=== PATIENT | male | born 1970 | race Caucasian/White ===

== ENCOUNTER 2019-12-21 19:18 | Emergency (ER) | payer OTHER, BC ==
[~2019-12-21] VITALS: Ht 180 cm; Wt 105.0 kg
[2019-12-21] MEDS ORDERED: OMEP20TA7 PO (19:28)
[2019-12-21] MEDS ORDERED: ASPI-586 PO (19:28)
--- OUTSIDE RECORDS SUMMARY | 2019-12-21 19:30 | XMS REPORT | Referral Summary ---
Author Author [facility] Toni comer, Cardiology Organization [facility], Toni comer, Cardiology Address Unknown Phone Unavailable Care Team Providers Care Supervisor Rod Placing Name Role Phone Terry Baugh Ludivina PCP Encounter VC Date(s): 08/03/16 - 08/03/16 [facility], Cardiology [address] [place], [place] [address] Discharge Disposition: 01-Home or Self Care Attending Physician: Hong Garduno MD Admitting Physician: Hong Garduno MD Vital Signs Most recent to 1 oldest [Reference Range]: Peripheral Pulse 59 bpm Rate [60-100 bpm] *LOW* (08/03/16 1:12 PM) Blood Pressure 129/96 mmHg [90-140/60-90 mmHg] (08/03/16 1:12 PM) Problem List Condition Effective Dates Status Health Status Informan t Esophageal Active reflux(Confirmed) Obesity(Confirmed) Active patient Pure Active hypercholesterolemia (Confirmed) Allergies, Adverse Reactions, Alerts No Known Medication Allergies Medications aspirin 81 mg oral delayed release tablet 1 tabs, Oral, Daily Start Date: 04/24/14 Status: Ordered atorvastatin 40 mg oral tablet See Instructions, TAKE ONE AND ONE-HALF TABLET BY MOUTH AT BEDTIME, # 45 tabs, e Rx: [facility] #[id number], TAKE ONE AND ONE-HALF TABLET BY MOUTH AT BEDTIME Start Date: 06/12/16 Status: Ordered atorvastatin 40 mg oral tablet See Instructions, TAKE ONE AND ONE-HALF (1 & 1/2) TABLET BY MOUTH AT BEDTIME, # 45 tabs, 0 Refill(s), Pharmacy: [facility] #[id number], TAKE ONE AND ONE-HALF (1 & 1/2) TABLET BY MOUTH AT BEDTIME Start Date: 05/12/16 Status: Ordered Crestor 40 mg oral tablet 40 mg 1 tabs, Oral, Daily, # 90 tabs, 6 Refill(s), Pharmacy: [facility] #[id number], 1 tabs Oral Daily Start Date: 06/07/16 Status: Ordered losartan 25 mg oral tablet 25 mg 1 tabs, Oral, Daily, # 90 tabs, 6 Refill(s), Pharmacy: [facility] #[id number], 1 tabs Oral Daily Start Date: 06/07/16 Status: Ordered omeprazole 20 mg oral delayed release capsule 1 caps, Oral, Daily Start Date: 04/24/14 Status: Ordered Results No data available for this section Immunizations No data available for this section Procedures Procedure Date Related Diagnosis Body Site Tonsillectomy Social History Social History Type Response Smoking Status Never smoker Assessment and Plan No data available for this section
--- OUTSIDE RECORDS SUMMARY | 2019-12-21 19:30 | XMS REPORT | Continuity of Care Document ---
Author Author [facility] Organization [facility] Address [address] [place] [address] Phone Care Team Providers Care Differential Tester Name Role Phone Gildardoleslye Ivan Darby Attphys GildardoIvan gavin Mehnaz Rndphys Allergies, Adverse Reactions, Alerts No known allergies. Medications Medication Status Dose Units Route Sig Qty Days Start Date End Date Instructions Aspirin (Adult Low Strength Aspirin) Discontinued TABLET, DELAYED RELE ASE Daily 0 June 27, 2010 9:19am June 05, 2019 4:29pm Omeprazole Active Daily 0 June 27, 2010 9:19am STATIN MED Discontinued Daily 0 June 27, 2010 9:19am June 05, 2019 4:29pm VITAMIN Discontinued Daily 0 June 27, 2010 9:19am June 052018 4:29pm Oseltamivir Cap Discontinued 75 MG Oral Twice a Day 10 5 August 09, 2017 5:43pm August 14, 2017 12:02am Oseltamivir Cap Discontinued 75 MG Oral Daily 7 7 August 08, 2018 6:20pm August 15, 2018 12:02am Losartan Potassium Active 25 MG Oral Daily June 06, 2019 9:08am Rosuvastatin Calcium Active 40 MG Oral Daily June 06, 2019 9:08am Rosuvastatin Calcium Discontinued 40 MG Oral Daily June 05, 2019 4:30pm June 06, 2019 9:08am Losartan Potassium Discontinued 25 MG Oral Daily June 05, 2019 4:30pm June 06, 2019 9:08am Multivitamin Active 1 CAP Oral Daily June 05, 2019 4:31pm Problems No problem information available. Procedures No procedure information available. Relevant Diagnostic Tests and/or Laboratory Data Laboratory Results Test Date/Time Result Interpretation Reference Range Result Comment Performing Site Icterus Index June 05, 2019 5:48pm < 2.0 0-7 Main Lab, [address] [place] [address] Chemistry Specimen Hemolysis Decembe r 2018 5:48pm < 15.0 0-25 0-25: Specimen Exhibited No Hemolysis. Main Lab, [address] [place] [address] Turbidity June 05, 2019 5:48pm < 20.0 0-20 Main Lab, [address] [place] [address] Sodium Level June 05, 2019 5:48pm 140 meq/L 136-146 Main Lab, [address] [place] [address] Potassium Level June 05, 2019 5:48pm 4.2 meq/L 3.6-5 Main Lab, [address] [place] [address] Chloride Level June 05, 2019 5:48pm 105 meq/L 98-107 Main Lab, [address] [place] [address] Carbon Dioxide Level June 05, 2019 5:48pm 24 MEQ/L 22-30 Main Lab, [address] [place] [address] Anion Gap June 05, 2019 5:48pm 11 meq/L 5-15 Main Lab, [address] [place] [address] Blood Urea Nitrogen June 05 019 5:48pm 19.0 MG/DL 9-20 Main Lab, [address] [place] [address] Creatinine June 05, 2019 5:48pm 1.0 mg/dL 0.8-1.5 Main Lab, [address] [place] [address] 35368 Glomerular Filtration Rate Calc Dece mber 2018 5:48pm 79 mL/min >60 Main Lab, [address] [place] [address] Estimated Creatinine Clearance Decem lorraine 2018 5:48pm 107 mL/min Main Lab, [address] [place] [address]2854 BUN/Creatinine Ratio June 05, 2019 5:48pm 19 RATIO 6-26 Main Lab, [address] [place], [place] [id number] Glucose Level June 05, 2019 5:48pm 86 MG/DL 75-110 Main Lab, [address] [place] [address]08 Calculated Osmolality June 05, 2019 5:48pm 270 MOSM/KG 261-280 Main Lab, [address] [place] [address] Calcium Level June 05, 2019 5:48pm 9.8 MG/DL 8.4-10.2 Main Lab, [address] [place] [address]408 Total Bilirubin June 05, 2019 5:48pm 0.30 MG/DL 0.20-1.30 Main Lab, [address] [place] [address] Alkaline Phosphatase June 05, 2019 5:48pm 36 U/L 38-126 Main Lab, [address] [place] [address] Aspartate Amino Transf (AST/SGOT) De cember 2018 5:48pm 30 U/L 17-59 Main Lab, [address] [place] [address] Alanine Aminotransferase (ALT/SGPT) June 05, 2019 5:48pm 23 U/L 1-50 Main Lab, [address] [place] [address] Total Protein June 05, 2019 5:48pm 7.6 g/dL 6.3-8.2 Main Lab, [address] [place] [address] Albumin June 05, 2019 5:48pm 4.6 g/dL 3.5-5.0 Main Lab, [address] [place] [address] Globulin June 05, 2019 5:48pm 3.0 G/DL 2.4-3.6 Main Lab, [address] [place] [address] Albumin/Globulin Ratio May 5:48pm 1.5 RATIO 1.1-2.2 [facility], [address] [place] [address] Chemistry Comments June 05 5:48pm Performed at [facility] lab Test performed at: [facility], [address] [place] [address]. C++ Quant Developer Evelyn Patel MD. [facility]# [id number]. Main Lab, [address] [place] [address] Health Concerns Health Concerns may be documented in an alternate section. Chief Complaint and Reason for Visit Chief Complaint med check Encounters Encounter Location(s) [facility]/Admit Date Discharge/Depart Date Provider(s) Departed Physician/Provider Office Visit [facility] June 05, 2019 4:18pm June 05, 2019 5:24pm Mehnaz Granados APRN Assessments No Assessments Information Available Family History Relationship Condition A ge at Onset Recorded Date/Time father Unknown Unknown grandmother Unknown mother Unknown Functional Status No Functional Status information available Goals Goals may be documented in an alternate section. Immunizations No Immunization Information Available Mental Status No Mental Status Information Available Medical Equipment No Medical Equipment Information available Insurance Providers Guarantor Dino Fishman Address [address] [facility] [address] Contact Info. Home Phone: Payer Policy Id Coverage Id Subscriber's Name Subscriber Id Effective Date Expiration Date [facility] [id number] 2010 Self Pay Self N/A Plan of Treatment Plan to draw CMP today, patient has not had lab work for several years besides his lipids. We will notify him of results. Plan to follow-up yearly for wellness exams. Offered fl u shot, patient declined. Future Tests Future scheduled test information is unavailable Pending Tests Pending diagnostic test information is unavailable Future Visits Future appointment information is unavailable Referrals to Other Providers Referral information is unavailable Future Procedures Future procedure information is unavailable Future Medications Future medication information is unavailable Patient Instructions Patient instructions are unavailable Social History Smoking Status Status Date of Observation Unknown if ever smoked May 8:46am Observation Status Observation Response Jose De Jesus e of Response alcohol intake current D ec2018 8:46am alcohol intake frequency a few times a wee k June 06, 2019 8:46am substance use type does not use June 06, 2019 8:46am Assigned Sex Male Vital Signs Vital Reading Result Ref erence Range Collection Date/Time Height 69.5 [in_i] June 05, 2019 4:34pm Weight 104.77 kg June 05, 2019 4:34pm Body Temperature 98.9 [degF] 96.8-100.4 June 05, 2019 4:34pm Heart Rate 80 /min 60-100 June 05, 2019 4:34pm Oxygen saturation by Pulse oximetry 92 % 90- 100 June 05, 2019 4:34pm BP Systolic 134 mm[Hg] - 139 June 05, 2019 4:34pm BP Diastolic 82 mm[Hg] - 89 June 05, 2019 4:34pm BMI (Body Mass Index) 33.6 kg/m2 June 05, 2019 4:34pm
--- OUTSIDE RECORDS SUMMARY | 2019-12-21 19:30 | XMS REPORT | Referral Summary ---
Author Author [facility], Toni comer, Cardiology Organization [facility] Toni comer, Cardiology Address Unknown Phone Unavailable Care Team Providers Care Dredge Master Name Role Phone Finn Payne PCP Encounter Date(s): 11/19/14 - 11/19/14 [facility], [place], Cardiology [address] [place], [place] [address] Discharge Diagnosis: Essential hypernatremia Discharge Diagnosis: High cholesterol Discharge Diagnosis: Essential hypertension Discharge Disposition: 01-Home or Self Care Attending Physician: Hong Garduno MD Admitting Physician: Hong Garduno MD Vital Signs Most recent to 1 oldest [Reference Range]: Peripheral Pulse 60 bpm Rate [60-100 bpm] (11/19/14 1:57 PM) Blood Pressure 132/102 mmHg [90-140/60-90 mmHg] (11/19/14 1:57 PM) Problem List Condition Effective Dates Status Health Status Informan t Esophageal Active reflux(Confirmed) Obesity(Confirmed) Active patient Pure Active hypercholesterolemia (Confirmed) Allergies, Adverse Reactions, Alerts No Known Medication Allergies Medications aspirin 81 mg oral delayed release tablet 1 tabs, Oral, Daily Start Date: 04/24/14 Status: Ordered Lipitor 40 mg oral tablet 60 mg 1.5 tabs, Oral, Bedtime (once a day), # 135 tabs, 2 Refill(s), Pharmacy: [facility] #[id number], 1.5 tabs Oral Bedtime (once a day) Start Date: 04/06/15 Status: Ordered losartan 25 mg oral tablet 25 mg 1 tabs, Oral, Daily, # 90 tabs, 2 Refill(s), Pharmacy: [facility] #[id number], 1 tabs Oral Daily Start Date: 04/06/15 Status: Ordered omeprazole 20 mg oral delayed release capsule 1 caps, Oral, Daily Start Date: 04/24/14 Status: Ordered Results No data available for this section Immunizations No data available for this section Procedures Procedure Date Related Diagnosis Body Site Tonsillectomy Social History Social History Type Response Smoking Status Never smoker Assessment and Plan Extracted from: Title: Office Visit Note Author: Hong Garduno MD Date: 11/19/14 Assessment/Plan 1.Essential hypernatremia Ordered: Return to Clinic 2.Essential hypertension Ordered: Return to Clinic 3.High cholesterol Discussion: Overall, he seems to be doing okay but I think that there are some opportunities. We advised him that his blood pressure is indeed higher than it should be and we initiated therapy with losartan, 25 mg daily. We gave him suggestions regarding his activity program and diet. We suggested that he try to lose approximately 5 percent of his body weight by next year. We discussed his lipid situation. He is taking 60 mg of atorvastatin daily. We could change to Crestor however I think there may be some opportunities for better dietary control and exercising 5-7 days per week. Time of visit approximately 25 minutes most of which dedicated to prevention discussion Ordered: Return to Clinic Orders: losartan, 25 mg 1 tabs, Oral, Daily, # 30 tabs, 4 Refill(s), Pharmacy: [facility] #[id number], 1 tabs Oral Daily Referrals to Other Providers Referred by: Hong Garduno MD
--- OUTSIDE RECORDS SUMMARY | 2019-12-21 19:30 | XMS REPORT | Referral Summary ---
Author Author [facility], Toni comer, Cardiology Organization [facility] Mur[facility] o[facility], Cardiology Address Unknown Phone Unavailable Care Team Providers Care Welder Railcar Mechanic Name Role Phone Terry Baugh PCP Finn Payne PCP Encounter [facility] [id number] Date(s): 09/24/17 - 09/24/17 [facility], [facility], Cardiology [address] [place], [place] [address] Encounter Diagnosis Hypercholesteremia (Discharge Diagnosis) - 09/24/17 Fatigue (Discharge Diagnosis) - 09/24/17 Discharge Disposition: 01-Home or Self Care Attending Physician: Hong Garduno MD Admitting Physician: Hong Garduno MD Vital Signs Most recent to 1 oldest [Reference Range]: Peripheral Pulse 60 bpm Rate [60-100 bpm] (09/24/17 1:37 PM) Blood Pressure 130/82 mmHg [90-140/60-90 mmHg] (09/24/17 1:37 PM) Problem List Condition Effective Dates Status Health Status Informan t Esophageal Active reflux(Confirmed) Obesity(Confirmed) Active patient Pure Active hypercholesterolemia (Confirmed) Allergies, Adverse Reactions, Alerts No Known Medication Allergies Medications aspirin 81 mg oral delayed release tablet 1 tabs, Oral, Daily Start Date: 04/24/14 Status: Ordered losartan 25 mg oral tablet See Instructions, TAKE ONE TABLET BY MOUTH DAILY, # 90 tabs, 5 Refill(s), eRx: [facility] #[id number], TAKE ONE TABLET BY MOUTH DAILY Start Date: 09/03/17 Status: Ordered omeprazole 20 mg oral delayed release capsule 1 caps, Oral, Daily Start Date: 04/24/14 Status: Ordered rosuvastatin 40 mg oral tablet See Instructions, TAKE ONE TABLET BY MOUTH DAILY, # 90 tabs, 5 Refill(s), eRx: [facility] #[id number], TAKE ONE TABLET BY MOUTH DAILY Start Date: 09/03/17 Status: Ordered Results No data available for this section Immunizations No data available for this section Procedures Procedure Date Related Diagnosis Body Site Status Tonsillectomy Completed Social History Social History Type Response Smoking Status Never smoker entered on: 04/24/14 Assessment and Plan Extracted from: Title: Office Visit Note Author: Hong Garduno MD Date: 09/24/17 1.Hypercholesteremia 2.Fatigue Discussion: The patient appears to be doing very well with regard to his cardiac risk factors. We had an extensive discussion regarding the fatigue. Certainly it's possible thathe could have a sleep disorder or simplyan adverse schedule. The symptom that he is describing sounds more consistent withuneasiness regardingactivity rather than limitation with activity. I encouraged him to be sure that his sleep patterns areas good as possible. I advised him to confer with his to get some notion of whetherhe might have a sleep disorder and possibly consider a sleep evaluation. He reports that he has had recent laboratory data and we will wait for that information.
--- OUTSIDE RECORDS SUMMARY | 2019-12-21 19:31 | XMS REPORT | Continuity of Care Document ---
Author Author [facility] Organization [facility] Address [address] [place] [address] Phone Care Team Providers Care Flash Welding Machine Operator Name Role Phone Gildardoleslye Ivan Darby Attphys [...] 2019 5:48pm < 2.0 0-7 Main Lab, [address] [place] [address] Chemistry Specimen Hemolysis Decembe r 2018 5:48pm < 15.0 0-25 0-25: Specimen Exhibited No Hemolysis. Main Lab, [address] [place] [address]125 Turbidity June 05, 2019 5:48pm < 20.0 0-20 Main Lab, [address] [place] [address] Sodium Level June 05, 2019 5:48pm 140 meq/L 136-146 Main Lab, [address] [place] [address]893 Potassium Level June 05, 2019 5:48pm 4.2 meq/L 3.6-5 Main Lab, [address] [place] [address] Chloride Level June 05, 2019 5:48pm 105 meq/L 98-107 Main Lab, [address] [place] [address] Carbon Dioxide Level June 05, 2019 5:48pm 24 MEQ/L 22-30 Main Lab, [address] [place] [address] Anion Gap June 05, 2019 5:48pm 11 meq/L 5-15 Main Lab, [address] [place] [address] Blood Urea Nitrogen June 05 019 5:48pm 19.0 MG/DL 9-20 Main Lab, [address] [place] [address]61 Creatinine June 05, 2019 5:48pm 1.0 mg/dL 0.8-1.5 Main Lab, [address] [place] [address] 20810 Glomerular Filtration Rate Calc Dece mber 2018 5:48pm 79 mL/min >60 Main Lab, [address] [place] [address]70 Estimated Creatinine Clearance Decem lorraine 2018 5:48pm 107 mL/min Main Lab, [address] [place] [address]161 BUN/Creatinine Ratio June 05, 2019 5:48pm 19 RATIO 6-26 Main Lab, [address] [place], [place] [id number] Glucose Level June 05, 2019 5:48pm 86 MG/DL 75-110 Main Lab, [address] [place] [address]86 Calculated Osmolality June 05, 2019 5:48pm 270 MOSM/KG 261-280 Main Lab, [address] [place] [address]162 Calcium Level June 05, 2019 5:48pm 9.8 MG/DL 8.4-10.2 Main Lab, [address] [place] [address] 91514 Total Bilirubin June 05, 2019 5:48pm 0.30 MG/DL 0.20-1.30 Main Lab, [address] [place] [address] Alkaline Phosphatase June 05, 2019 5:48pm 36 U/L 38-126 Main Lab, [address] [place] [address] Aspartate Amino Transf (AST/SGOT) De cember 2018 5:48pm 30 U/L 17-59 Main Lab, [address] [place] [address] Alanine Aminotransferase (ALT/SGPT) June 05, 2019 5:48pm 23 U/L 1-50 Main Lab, [address] [place] [address] Total Protein June 05, 2019 5:48pm 7.6 g/dL 6.3-8.2 Main Lab, [address] [place] [address] Albumin June 05, 2019 5:48pm 4.6 g/dL 3.5-5.0 Main Lab, [address] [place] [address] Globulin June 05, 2019 5:48pm 3.0 G/DL 2.4-3.6 Main Lab, [address] [place] [address] Albumin/Globulin Ratio May 5:48pm 1.5 RATIO 1.1-2.2 [facility], [address] [place] [address] Chemistry Comments June 05 5:48pm Performed at [facility] Test performed at: [facility], [address] [place] [address]. Surgery Consultant Evelyn Patel MD. [facility]# [id number]. Main Lab, [address] [place] [address] Health Concerns Health Concerns may be documented in an alternate section. Chief Complaint and Reason for Visit Chief Complaint med check Encounters Encounter Location(s) Ar rival/Admit Date Discharge/Depart Date Provider(s) Departed Physician/Provider Office Visit [facility] June 05, 2019 4:18pm June 05, [...] Providers Guarantor Dino Fishman Address [address] [facility] [address] Contact Info. Home Phone: Payer Policy Id Coverage Id Subscriber's Name Subscriber Id Effective Date Expiration Date [facility] [id number] 2010 Self Pay Self N/A Plan of [...]
--- OUTSIDE RECORDS SUMMARY | 2019-12-21 19:31 | XMS REPORT | Continuity of Care Document ---
Demographics Preferred Language Unknown Marital Status Unknown Mandaeism Affiliation Unknown Race Unknown Ethnic Group Unknown Author Organization Unknown Address Unknown Phone Unavailable Allergies Active Description Code Type Severity Reaction Onset Reported/Identified Relationship to Patient Clinical Status Yes No Known Medication Allergies NKMA N/A N/A 04/24/2014 Yes No Known Allergies Allergy Unknown N/A 06/05/2019 Medications Medication Packaging Start Date St op Date Route Dosage Sig Omeprazole 06/27 PO 20 mg DAILY aspirin(aspirin 81 mg oral d elayed release tablet) 1 tabs 04/24/2014 Oral 8 1 mg 1 tabs, Oral, Daily atorvastatin(Lipitor 40 mg oral tablet) 1.5 tabs 04/24/2014 06/15/2014 Oral 60 mg 1.5 tabs, Oral, Daily omeprazole(omeprazole 20 mg oral delayed release capsule) 1 caps 04/24/2014 Oral 2 0 mg 1 caps, Oral, Daily losartan(losartan 25 mg oral tablet) 1 tabs 11/19/2014 02/15/2015 Oral 25 mg 25 mg = 1 tabs, Oral, Daily, 30 tabs, 4 Refill(s) losartan(losartan 25 mg oral tablet) 02/15/2015 03/15/2015 See Instructions, TAKE ONE TABLET BY MOUTH DAILY, 30 tabs atorvastatin(atorvastatin 40 mg oral table t) 08/09/2015 05/12/2016 See Instructions, TAKE ONE AND ONE-HALF (1-1/2) TABLETS BY MOUTH AT BEDTIME - Needs appt for further refills, 45 tabs, 0 Refill(s) rosuvastatin(Crestor 40 mg oral tablet) 1 tabs 06/07/2016 Oral 40 mg 40 mg = 1 tabs, Oral, Daily, 90 tabs, 6 Refill(s) losartan(losartan 25 mg oral tablet) 1 tabs 06/07/2016 Oral 25 mg 25 mg = 1 tabs, Oral, Daily, 90 tabs, 6 Refill(s) losartan(losartan 25 mg oral tablet) 09/03/2017 See Instructions, TAKE ONE TABLET BY MOUTH DAILY, 90 tabs, 5 Refill(s) rosuvastatin(rosuvastatin 40 mg oral table t) 09/03/2017 See Instructions, TAKE ONE TABLET BY MOUTH DAILY, 90 tabs, 5 Refill(s) Multivitamins PO 1 each DAILY Rosuvastatin Calcium 06/05/2019 PO 40 mg JASON Y Cozaar 9 PO 25 mg DAILY Rosuvastatin Calcium 06/06/2019 PO 40 mg JASON Y Cozaar 9 PO 25 mg DAILY Problems Date Dx Coded Attending Type Code Diagnosis Diagnosed By 06/07/2016 Hong Garduno Final E78. 00 Pure hypercholesterolemia, unspecified 06/07/2016 Hong Garduno Final I10 Essential (primary) hypertension 06/07/2016 Hong Garduno Final Z 87.898 Personal history of other specified conditions 09/24/2017 Hong Garduno Final E78. 00 Pure hypercholesterolemia, unspecified 09/24/2017 Hong Garduno Final R53. 83 Other fatigue 06/05/2019 NARCISA MARTINEZ WHOLESALE BUYER E78.5 Hyperlipidemia, unspecified NARCISA MARTINEZ WHOLESALE BUYER 06/05/2019 NARCISA MARTINEZ WHOLESALE BUYER I10 Essential (primary) hypertension NARCISA MARTINEZ WHOLESALE BUYER 06/05/2019 NARCISA MARTINEZ WHOLESALE BUYER Z51.81 Encounter for therapeutic drug level monitoring NARCISA MARTINEZ WHOLESALE BUYER 06/05/2019 NARCISA MARTINEZ WHOLESALE BUYER Z76.89 Persons encountering health services in other specified circumstances NARCISA MARTINEZ APRN Procedures Code Description [place] [address] Offi ce or other outpatient visit for the evaluation and management of an established patient, which requires at least 2 of these 3 florentino components: A detailed history; A detailed examination; Medical d 06/07/2016 82930 Echo cardiography, transthoracic, real-time with image documentation (2D), includes M-mode recording, when performed, during rest and cardiovascular stress test using treadmill, bicycle exercise and/or 08/03/2016 33337 Offi ce or other outpatient visit for the evaluation and management of an established patient, which requires at least 2 of these 3 florentino components: A detailed history; A detailed examination; Medical d 09/24/2017 Results Test Result Range L200.0020 - 06/05/19 17:48 FUNGAL CULTURE. 1.0 mg/dL 0.8-1.5 FUNGAL CULTURE, BLOOD. 19 RATIO 6-26 NA - Sodium 140 meq/L 136-146 Potassium 4.2 meq/L 3.6-5 Chloride 105 meq/L 98-107 CO2 - Carbon Dioxide 24 MEQ/L 22-30 Anion Gap 11 meq/L 5-15 BUN - Blood Urea Nitrogen 19.0 MG/DL 9-2 0 Glomerular Filtration Rate 79 mL/min >60 Glucose 86 MG/DL 75-110 Osmolality,Calculated 270 MOSM/KG 261-28 0 Calcium 9.8 MG/DL 8.4-10.2 Bilirubin,Total 0.30 MG/DL 0.20-1.30 Alkaline Phosphatase 36 U/L 38-126 AST - Aspartate Amino Transfer 30 U/L 17-59 TP - Total Protein 7.6 g/dL 6.3-8.2 Albumin Level 4.6 g/dL 3.5-5.0 Globulin 3.0 G/DL 2.4-3.6 Albumin/Globulin Ratio 1.5 RATIO 1.1-2.2 LICTERUS < 2.0 0-7 LHEMOLYSIS < 15.0 0-25 LTURBIDITY < 20.0 0-20 LALTV 23 U/L 1-50 LCGCRCL 107 mL/min >50 L300.9990 - 06/05/19 17:48 LPERFCHEM Performed at [facility]G Encounters ACCT No. Visit Date/Time Discharge Status Pt. Type Provider Facility Loc./Unit Complaint [id number] 06/08/2016 05:16:02 Document Registration [id number] 08/10/2015 05:17:41 Document Registration [id number] 04/14/2015 14:06:46 Document Registration [id number] 04/14/2015 13:37:10 Document Registration [id number] 04/14/2015 10:45:30 Document Registration [id number] 04/14/2015 10:16:59 Document Registration [id number] 06/05/2019 17:06:00 23:59:59 CLS Preadmit NARCISA MARTINEZ APRN LABN.AMB [id number] 06/05/2019 16:18:00 17:24:00 DIS [id number] 12/21/2019 19:27:[address] Emergency LOTTIEASHLEY Hernandez DOA Christelle [facility] [id number] 10/15/2018 14:14:00 019 23:59:00 DIS Outpatient Hong Garduno V [facility] Mur Card TCPA 1YR DHIRAJ [id number] 09/24/2017 13:19:00 018 23:59:00 DIS Outpatient Hong Garduno V [facility] Mur Card 15MO DHIRAJ [id number] 08/03/2016 11:06:00 017 23:59:00 DIS Outpatient Hong Garduno V [facility] Mur Card ALICJA Shaan 178cm 109kg [id number] 06/07/2016 12:21:00 016 23:59:00 DIS Outpatient Hong Garduno V [facility] New Card 18 MO K [id number] 09/04/2017 05:18:15 Document Registration
--- OUTSIDE RECORDS SUMMARY | 2019-12-21 19:31 | XMS REPORT | Continuity of Care Document ---
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 Procedures No procedure information available. Relevant Diagnostic Tests and/or Laboratory Data No known relevant diagnostic tests and/or laboratory data. Health Concerns Health Concerns may be documented in an alternate section. Chief Complaint and Reason for Visit Chief Complaint med check Encounters Encounter Location(s) Ar rival/Admit Date Discharge/Depart Date Provider(s) Departed Physician/Provider Office Visit [facility] June 05, 2019 4:18pm June 05, 2019 [...] available Insurance Providers Guarantor Dino Fishman Address [address] [place] [address] Contact Info. Home Phone: Payer Policy Id Coverage Id Subscriber's Name Subscriber Id Effective Date Expiration Date [facility] [id number] 2010 Self Pay Self N/A Social History Smoking Status Status Date of Observation Unknown if ever smoked May 4:36pm Observation Status Observation Response Jose De Jesus e of Response alcohol intake current D ec2018 4:36pm alcohol intake frequency a few times a wee k June 05, 2019 4:36pm substance use type does not use June 05, 2019 4:36pm Assigned Sex Male Vital Signs Vital Reading [...]
--- OUTSIDE RECORDS SUMMARY | 2019-12-21 19:31 | XMS REPORT | Continuity of Care Document ---
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 Home Phone: Payer Policy Id Coverage Id Subscriber's Name Subscriber Id Effective Date Expiration Date [facility] [id number] 2010 Self Pay Self N/A Social History [...]
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
[2019-12-21] MEDS ORDERED: CYCL10TA9 PO (20:18)
[2019-12-21] MEDS ORDERED: RX-CYCLOBENZAPRINE 10 MG (FLEXERIL) TAB PPK#3 PO STA (20:18)
[2019-12-21] MEDS ORDERED: RX-NAPROXEN (NAPROSYN) 250 MG TAB PPK#4 PO STA (20:18)
[2019-12-21] MEDS ORDERED: NAPR500T8 PO (20:18)
[2019-12-21 20:25] VITALS: BP 133/99
== END 2019-12-21 20:28 | disposition home or self-care (01) ==
LOC: ER 19:27
DX: S49.92XA Unspecified injury of left shoulder and upper arm, initial encounter (principal); E78.00 Pure hypercholesterolemia, unspecified; I10 Essential (primary) hypertension; K21.9 Gastro-esophageal reflux disease without esophagitis; Z90.89 Acquired absence of other organs; V53.5XXA Driver of pick-up truck or van injured in collision with car, pick-up truck or van in traffic accident, initial encounter
CPT/HCPCS: 71045; 73030